=== PATIENT | female | born 1945 | race Caucasian/White ===

== ENCOUNTER → 2018-10-06 18:17 | Outpatient (CLI) | payer OTHER, SELFPAY ==
--- NOTE | 2018-10-06 18:21 | DI.RAD.S_ITS ---
PROCEDURE: XR KNEE LT 3V INDICATIONS: Left anterior knee pain TECHNIQUE: 3 views of the knee were acquired. COMPARISON: None. FINDINGS: Bones: Lucency at the inferior pole of the patella seen on the lateral projection is suspicious for a fracture. No distraction. No dislocation. No suspicious bony lesions. Soft tissues: Large joint effusion with probable layering fat fluid level. No suspicious soft tissue calcifications. Quadriceps and patellar tendon are unremarkable. IMPRESSION: Non-distracted fracture of the inferior patella. Large joint effusion with probable lipohemarthrosis. Dictated by: Jai Bailon M.D. on 10/06/2018 at 19:14 Approved by: Jai Bailon M.D. on 10/06/2018 at 19:18
== END ==
PROVIDERS: Visit Provider Physician Assistant
DX: S80.02XA Contusion of left knee, initial encounter (principal)
CPT/HCPCS: 73562